=== PATIENT | male | born 1980 | race Caucasian/White ===

== ENCOUNTER 2024-10-04 08:56 | Emergency (ER) | payer OTHER ==
[~2024-10-04] VITALS: Ht 193 cm; Wt 149.1 kg
[2024-10-04 10:32] LABS: MEAN PLATELET VOLUME 7.8 FL (7.4-10.4); RED CELL DISTRIBUTION WIDTH 13.5 % (11.5-14.5)
--- NOTE | 2024-10-04 10:42 | Physician Documentation ---
History of Present Illness ~ Chief Complaint: Abscess Stated Complaint: ABSCESS Time Seen by MD: 09:12 Source: patient Mode of Arrival: POV Exam Limitations: no limitations HPI 43-year-old male with gluteal abscess treated at urgent care and prescribed doxycycline. Due to it being close to his anus concerned due to growing mass. Patient denies any difficulty with bowel movements. Patient states the pain has improved some. Tetanus Within 5 Years: Yes Medication Reconciliation Allergies: Coded Allergies: Penicillins (Unverified Allergy, Unknown, 10/04/24) Sulfa (Sulfonamide Antibiotics) (Unverified Allergy, Unknown, 10/04/24) Past Medical History Past Medical History: No Pertinent History Review of Systems All Other Systems at this time: Reviewed and Negative Integumentary: Reports: see HPI Physical Exam Vital Signs: RN Vital Signs have been reviewed: Yes, Temperature: 98.2, Source: Temporal, Heart Rate: 89, Respiratory Rate: 18, BP: 155/95, Pulse Oximetry: 97, Weight: 149.090 Physical Exam General: Alert, no apparent distress. HEENT: PERRL, EOMI, no injection, moist mucous membranes. Neck: Full range of motion. Respiratory: Lungs clear, no respiratory distress. Chest: No accessory muscle use. Cardiovascular: Regular rate and rhythm, no murmurs. Extremities: Normal range of motion, no deformity. Integumentary: Abscess to left gluteus does not extend to the anus but is approximately 2 cm from. Some fluctuance with extensive induration to the left glute. Neurologic: Oriented x4. Psychiatric: Normal mood and affect. Skin: Normal color, warm and dry. No edema, no ecchymosis. Procedures I & D Procedure : Site: Left glute Anesthesia: Lidocaine w/ Epi Volume Anesthetic (mls): 5 Blade Size: 11 Prep/Supplies: betadine prep, drapes applied, irrigated, packing placed Incision: pus drained, blood drained Tolerated Procedure Well?: yes, no complications Progress Results/Orders Results/Orders Orders - TALITA RIVER NP Laceration/I&D Tray Set Up (10/04/24 09:26) Ct Pelvis (10/04/24 11:06) Completed Orders - TALITA RIVER NP Lidocaine 1% W/Epi 1:100,000 (Xylocaine (10/04/24 09:30) Iohexol 12mg/Ml Oral Solution* (Omnipaqu (10/04/24 09:35) BMP (10/04/24 10:01) Cbc/Diff (10/04/24 10:01) Ct Pelvis (10/04/24 11:06) Vital Signs 10/04/24 10/04/24 10/04/24 10/04/24 08:58 10:41 11:40 12:40 Temp 98.2 Pulse 89 76 82 79 Resp 18 18 13 18 B/P (MAP) 155/95 142/82 (102) 116/70 (85) 135/79 (97) Pulse Ox 97 96 100 97 O2 Flow Rate 0 0 0 10/04/24 13:37 Temp 98.2 Pulse 79 Resp 18 B/P (MAP) 124/64 Pulse Ox 97 Laboratory Tests Test 10/04/24 10:14 White Blood Count 9.7 Red Blood Count 4.93 Hemoglobin 14.2 Hematocrit 41.9 L Mean Corpuscular Volume 84.9 Mean Corpuscular Hemoglobin 28.9 Mean Corpuscular Hemoglobin Concent 34.0 Red Cell Distribution Width 13.5 Platelet Count 381 Mean Platelet Volume 7.8 Neutrophils (%) (Auto) 74.5 Lymphocytes (%) (Auto) 15.5 L Monocytes (%) (Auto) 7.3 Eosinophils (%) (Auto) 2.1 Basophils (%) (Auto) 0.6 Neutrophils # (Auto) 7.2 Lymphocytes # (Auto) 1.5 Monocytes # (Auto) 0.7 Eosinophils # (Auto) 0.2 Basophils # (Auto) 0.1 CBC Comment Sodium Level 134 L Potassium Level 4.2 Chloride Level 98 L Carbon Dioxide Level 24.9 Anion Gap 11 Blood Urea Nitrogen 20 H Creatinine 1.02 Estimated GFR/1.73 m2 80 BUN/Creatinine Ratio 19.6 Glucose Level 399 H Calcium Level 9.0 Albumin 3.1 L Chemistry Comments EKG/XRAY/CT/US/VASC/MRI CT : Impression CT CT PELVIS W/ IV CONTRAST HISTORY: Gluteal abscess COMPARISON: None PROCEDURE: Helical CT images were obtained of the pelvis with intravenous contrast. Sagittal and coronal reconstructions are provided. ORAL CONTRAST: None. ADDITIONAL IMAGES: None TOTAL RADIATION DOSE: CTDIvol: 36 mGy DLP: 1462 mGy x cm FINDINGS: BOWEL: Normal. Normal appendix. VISUALIZED KIDNEYS AND URETER: Not seen. BLADDER: Normal. REPRODUCTIVE ORGANS: Normal. LYMPH NODES: No lymphadenopathy. PERITONEUM / RETROPERITONEUM: Normal. VESSELS:Normal ABDOMINAL WALL: 5.9 x 3.6 cm left inferior gluteal fluid collection with adjacent inflammatory fat stranding. BONES: Scattered degenerative changes are noted in the visualized osseous structures. IMPRESSION: 5.9 x 3.6 cm left inferior gluteal fluid collection with adjacent inflammatory fat stranding could be a perianal abscess. Medical Decision Making Findings Evaluation as well from attending. CT of the pelvis with IV contrast CBC BMP has been ordered as we needed GFR for contrast. Discussed I and D after CT. Spoke with attending as well as surgeon Dr. Alonzo who states it would be d rainable in the emergency department. I and D performed copious amounts of purulent drainage expressed packing placed patient tolerated well and has an appointment on Sunday. 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 Differential Dx:Considerations: Include: Abscess Departure Time of Disposition: 13:24 Disposition: 01 HOME / SELF CARE / HOMELESS Impression: Primary Impression: Abscess Condition: Stable Discharge Instructions: Abscess, Care After, Incision and Drainage Additional Instructions: Change packing Sunday follow up with primary care Sunday continue taking antibiotics Departure Forms: Excuse form Work or School Excused From: Work Excuse beginning now through the following date: Oct 08, 2024 Referrals: NO PRIMARY CARE PROVIDER (PCP) Education Educated: Patient, Family Educated regarding: diagnosis, treatment, need for follow up Signature Scribe Signature: No scribe Attestation: The note accurately reflects work and decisions made by me.Talita JIANG 10/04/24 10:41 TALITA RIVER NP Oct 04, 2024 10:42
[2024-10-04 10:47] LABS: CREATININE 1.02 MG/DL (0.60-1.10); TOTAL CARBON DIOXIDE 24.9 MMOL/L (24-32); eCRCL 115 ML/MIN; eGFR 80 ML/MIN
[2024-10-04] MEDS ORDERED: iohexol 300mg/ml 100ml inj. ONE (10:53)
[2024-10-04] MEDS: IOHEXOL 12MG/ML oral solution 1,000 ML BOTTLE-COMPOUND-RX PO PRN (11:06)
--- NOTE | 2024-10-04 12:24 | RADIOLOGY REPORT ---
CT CT PELVIS W/ IV CONTRAST HISTORY: Gluteal abscess COMPARISON: None PROCEDURE: Helical CT images were obtained of the pelvis with intravenous contrast. Sagittal and cor onal reconstructions are provided. ORAL CONTRAST: None. ADDITIONAL IMAGES: None TOTAL RADIATION DOSE: CTDIvol: 36 mGy DLP: 1462 mGy x cm FINDINGS: BOWEL: Normal. Normal appendix. VISUALIZED KIDNEYS AND URETER: Not seen. BLADDER: Normal. REPRODUCTIVE ORGANS: Normal. LYMPH NODES: No lymphadenopathy. PERITONEUM / RETROPERITONEUM: Normal. VESSELS:Normal ABDOMINAL WALL: 5.9 x 3.6 cm left inferior gluteal fluid collection with adjacent inflammatory fat st randing. BONES: Scattered degenerative changes are noted in the visualized osseous structures. IMPRESSION: 5.9 x 3.6 cm left inferior gluteal fluid collection with adjacent inflammatory fat stranding could be a perianal abscess.
[2024-10-04] MEDS: LIDOcaine 1% W/epiNEPHrine 1:100,000 20ml vial IJ ONE (13:07)
[2024-10-04 13:37] VITALS: BP 124/64; PULSE 79; RESP 18; TEMP 98.2; O2SAT 97
== END 2024-10-04 13:34 | disposition home or self-care (01) ==
LOC: ER 08:57
DX: L02.31 Cutaneous abscess of buttock (principal); Z88.0 Allergy status to penicillin; Z88.2 Allergy status to sulfonamides
CPT/HCPCS: 10060; 36415; 72193; 80048; 85025; 99285; A6266; Q9967; A6449